=== PATIENT | male | born 1995 | race Caucasian/White ===

== ENCOUNTER 2017-07-10 04:43 | Emergency (ER) | payer BC ==
[~2017-07-10] VITALS: Ht 175.3 cm; Wt 88.4 kg
[2017-07-10 04:47] VITALS: TEMP 36.5; Ht 175.3 cm; Wt 88.4 kg
[2017-07-10] MEDS ORDERED: PROPARACAINE HCL 0.5% OP SOLN 15 ML BTL ONE (04:57)
[2017-07-10] MEDS ORDERED: OXYCODONE HCL IR 5 MG TAB (IMMEDIATE RELEASE) PO STA (05:17)
[2017-07-10] MEDS ORDERED: EMPTY 8 DRAM VIAL ONE (05:23)
[2017-07-10 05:27] VITALS: BP 135/81; PULSE 52; O2SAT 96
--- NOTE | 2017-07-10 05:40 | EMERGENCY ROOM VISIT NOTE ---
History Report prepared by Hugo: Kia Peace Under the Supervision of: Dr. Susy Haile D.O. First contact with patient: 04:51 Chief Complaint: EYE ASSESSMENT Stated Complaint: IRRITATED EYE History of Present Illness The patient is a 22 year old male who presents to the Emergency Room for an eye assessment secondary to falling asleep with his contacts in earlier today. The patient states that one day ago he woke up with his left eye swollen shut, noting it was irritated and difficult for him to put on his contacts but he managed to do it. Last night he fell asleep with his contacts in, noting that his eyes worsened and have been hurting since. He reports having a "lazy eye", noting that he has had two eye surgeries in the past to try and correct it. Source of History: patient Onset: today Position: eye Quality: other (eye assessment) Note: Associated symptoms: eye swollen, irritated, and in pain. Review of Systems See HPI for pertinent positives & negatives. A total of 10 systems reviewed and were otherwise negative. Past Medical & Surgical Medical Problems: (1) Amblyopia Family History Hypertension Social History Smoking Status: Never Smoker Smokeless Tobacco Use: No Alcohol Use: none Drug Use: none Marital Status: single Housing Status: lives with roommate Occupation Status: [employer] student Current/Historical Medications No Active Prescriptions or Reported Meds Allergies Coded Allergies: No Known Allergies (Unverified , 07/10/17) Physical Exam Vital Signs Date Time Temp Pulse Resp B/P (MAP) Pulse Ox O2 Delivery O2 Flow Rate FiO2 07/10/17 05:27 52 16 135/81 96 Room Air 07/10/17 04:47 36.5 59 18 169/75 98 Room Air Physical Exam HEENT: Head - normocephalic and atraumatic Eyes- right pupil 6mm and reactive to light, left pupil 3 mm and sluggishly reactive to light. Intraocular eye pressures: right was 16 and left was 18. Pain with extra ocular eye movement. Nose - moist nasal mucosa without discharge. Mouth - moist buccal mucosa. Oropharynx is nonerythematous and there is no tonsillar exudate or edema noted. Medical Decision & Procedures Medications Administered Medications (Trade) Dose Ordered Sig/Tess Route Start Time Stop Time Status Last Admin Dose Admin Oxycodone HCl (Roxicodone Immediate Rel Tab) 10 mg NOW STAT PO 07/10/17 05:17 07/10/17 05:20 DC 07/10/17 05:24 10 MG Procedure 0457: Ordered Proparacaine HCL 225 drops. 0517: Ordered Oxycodone HCL 10mg PO. Slit Lamp Examination Indication: Pain to the left eye The left eye was prepped with topical proparacaine. Slit lamp examination was performed in the standard fashion. Cornea appeared clear. Anterior chamber was hazy. Scleral injection was present. No discharge present. Fluorescein examination performed and revealed no corneal abrasion or ulceration. No foreign bodies noted. Negative Isaak sign. The patient tolerated the procedure well without complication. ED Course 0454: Past medical records reviewed. The patient was evaluated in room B7. A complete history and physical exam was performed. 0517: Ordered Oxycodone HCL 10mg PO to take at home. 0519: Checked extra ocular eye pressures: the right was 16 and left was 18. 0621: Discussed the patient's case with Dr. Dos Santos, Ophthalmology. He suggests that the patient follow up as an outpatient today in the office. 0625: Upon reevaluation, the patient was resting comfortably. I discussed findings and results with him. He verbalized agreement of the treatment plan. The patient was discharged home. Medical Decision The patient is a 22 year old male who presents to the ED for an eye assessment. Differential diagnosis includes iritis, corneal abrasion, conjunctivitis, corneal laceration, and paraorbital cellulitis. This is a 22-year-old male patient presents to the emergency department with significant discomfort in the left eye. The patient had difficulties with his contacts for the past 2 days. I thought the patient would potentially have a corneal ulcer or abrasion secondary to contact lens wearing but I could not see any signs of corneal abrasion or ulceration. I was concerned about the significant scleral injection. The anterior chamber was slightly hazy and pupils were different sizes. The patient got only minimal relief from the procaine eyedrops. I did give the patient to oxycodone to take once he arrived at home since he drove himself here to the emergency department. I discussed the case with Dr. Polo from ophthalmology and he is agreed to see the patient in follow-up. Medication Reconcilliation Current Medication List: was personally reviewed by me Blood Pressure Screening Patient's blood pressure: Normal blood pressure Blood pressure disposition: Did not require urgent referral Consults Time Called: [phone] Consulting Physician: Dr. Dos Santos, Optometry Returned Call: [phone] Discussed the patient's case with Florian Clemente. He suggests that the patient follow up as an outpatient. Impression Primary Impression: Acute conjunctivitis, left eye Scribe Attestation The scribe's documentation has been prepared under my direction and personally reviewed by me in its entirety. I confirm that the note above accurately reflects all work, treatment, procedures, and medical decision making performed by me. Departure Information Dispostion Home / Self-Care Prescriptions No Active Prescriptions or Reported Meds Referrals No Doctor, Assigned (PCP) Forms HOME CARE DOCUMENTATION FORM, IMPORTANT VISIT INFORMATION, WORK / SCHOOL INSTRUCTIONS Patient Instructions My [facility] Additional Instructions Rest. Take the pain meds when you get home. You will need to follow up with Ophthamology today for a recheck. If you do not hear from Dr. Dos Santos's office by 10 am, please call them Problem Qualifiers Primary Impression: Acute conjunctivitis, left eye Acute conjunctivitis type: unspecified Qualified Codes: H10.32 - Unspecified acute conjunctivitis, left eye
== END 2017-07-10 05:37 | disposition home or self-care (01) ==
LOC: C.EDB 04:45
DX: H10.32 Unspecified acute conjunctivitis, left eye (principal); Z82.49 Family history of ischemic heart disease and other diseases of the circulatory system